=== PATIENT | female | born 1990 | race Caucasian/White ===

== ENCOUNTER 2017-05-21 00:57 | Observation (INO) | payer OTHER ==
[2017-05-21] MEDS ORDERED: VANCOMYCIN IV PER PHARMACY 1 EACH MISC MISCELLANE PRN (01:34)
[2017-05-21] MEDS ORDERED: HYDROcodone/APAP 7.5-325MG 1 EACH TAB PO ONE (01:34)
--- NOTE | 2017-05-21 01:40 | ED ---
Lower Extremity Injury HPI - General Chief Complaint: Extremity Injury, Lower Stated Complaint: foot infection Time Seen by Provider: 05/21/17 01:09 Source: patient Mode of arrival: ambulatory Limitations: no limitations - History of Present Illness Initial Comments: A 26-year-old woman who complains of having left lower extremity pain. The patient states that she has been having approximately 4 months of intermittent left foot pain and infection since having foot surgery about 4 months ago. She states this was performed by Dr. Denney in his clinic. She has taken a number of courses of antibiotics since that time but states that the infection recurs. She experiences redness, swelling, and drainage from the surgical incision which is on the lateral aspect of the dorsum of the left foot. The patient states that she was seen at [facility] yesterday and that they had wanted to admit her for this condition but she states that she left AGAINST MEDICAL ADVICE. She is taking prescription of Bactrim and Cipro which were given yesterday. She states that the symptoms have worsened since then and she is concerned about infection. She has also experienced some hot and cold episodes over the course of today. MD Complaint: foot injury -: days(s) Injury: Foot: Left Type of Injury: other Improves With: nothing Worsens With: weight bearing Context: other (Postsurgical) Associated Symptoms: swelling Treatments Prior to Arrival: other (Antibiotics) - Related Data Allergies Allergy/AdvReac Type Severity Reaction Status Date / Time latex AdvReac Rash/Hives Verified 05/21/17 01:04 Review of Systems ROS Statement: Those systems with pertinent positive or pertinent negative responses have been documented in the HPI. ROS Other: All systems not noted in ROS Statement are negative. Constitutional: Reports: as per HPI, fever, chills Respiratory: Denies: cough, dyspnea Cardiovascular: Denies: chest pain, palpitations, orthopnea, edema, syncope Gastrointestinal: Denies: abdominal pain, vomiting, diarrhea Skin: Reports: as per HPI, change in color Neurological: Denies: weakness, numbness, paresthesias Past Medical History Past Medical History: Diabetes Mellitus, Thyroid Disorder Additional Past Medical History / Comment(s): vertigo, PCOs, hypothyroid History of Any Multi-Drug Resistant Organisms: MRSA Past Surgical History: Tonsillectomy Additional Past Surgical History / Comment(s): ganglion cyst removal each ankle , wisdom teeth removal Past Psychological History: Anxiety, Bipolar, Depression Smoking Status: Never smoker Past Alcohol Use History: None Reported Past Drug Use History: None Reported General Exam Limitations: no limitations General appearance: alert, in no apparent distress, obese Head exam: Present: atraumatic, normocephalic Respiratory exam: Present: normal lung sounds bilaterally. Absent: respiratory distress, wheezes, rales, rhonchi, stridor Cardiovascular Exam: Present: regular rate, normal rhythm, normal heart sounds. Absent: systolic murmur, diastolic murmur, rubs, gallop GI/Abdominal exam: Present: soft. Absent: distended, tenderness, guarding, rebound Extremities exam: Present: tenderness, normal capillary refill, pedal edema, other (The patient does have some soft tissue swelling to the dorsum of the left foot and also to the left pretibial area. There is erythema and warmth. In addition there is serous drainage from the surgical incision, which has had approximately 1/2-1 cm which has opened and is healing by secondary intention.) . Absent: calf tenderness Neurological exam: Present: alert. Absent: motor sensory deficit Skin exam: Present: warm, dry, erythema, other (See extremity exam). Absent: rash, cyanosis, urticaria, vesicles, petechiae, pallor, mottled Course Vital Signs 05/21/17 00:58 Temperature 99.9 F H Pulse Rate 97 Respiratory 18 Rate Blood Pressure 176/79 O2 Sat by Pulse 97 Oximetry Medical Decision Making - Lab Data Result diagrams: 05/21/17 02:10 05/21/17 02:10 Lab Results 05/21/17 05/21/17 05/21/17 Range/Units 02:10 02:10 02:10 WBC 5.8 (3.8-10.6) k/uL RBC 4.45 (3.80-5.40) m/uL Hgb 13.4 (11.4-16.0) gm/dL Hct 40.2 (34.0-46.0) % MCV 90.1 (80.0-100.0) fL MCH 30.0 (25.0-35.0) pg MCHC 33.3 (31.0-37.0) g/dL RDW 15.9 H (11.5-15.5) % Plt Count 211 (150-450) k/uL Neutrophils % 49 % Lymphocytes % 37 % Monocytes % 8 % Eosinophils % 2 % Basophils % 1 % Neutrophils # 2.8 (1.3-7.7) k/uL Lymphocytes # 2.1 (1.0-4.8) k/uL Monocytes # 0.5 (0-1.0) k/uL Eosinophils # 0.1 (0-0.7) k/uL Basophils # 0.0 (0-0.2) k/uL Sodium 140 (137-145) mmol/L Potassium 4.3 (3.5-5.1) mmol/L Chloride 105 (98-107) mmol/L Carbon Dioxide 24 (22-30) mmol/L Anion Gap 11 mmol/L BUN 13 (7-17) mg/dL Creatinine 0.70 (0.52-1.04) mg/dL Est GFR (MDRD) Af Amer >60 (>60 ml/min/1.73 sqM) Est GFR (MDRD) Non-Af >60 (>60 ml/min/1.73 sqM) Glucose 163 H (74-99) mg/dL Plasma Lactic Acid Miguel Angel 1.6 (0.7-2.0) mmol/L Calcium 9.2 (8.4-10.2) mg/dL Disposition Clinical Impression: Foot infection Disposition: ADMITTED IP TO THIS HOSP Condition: Fair Referrals: Karl Dias MD [Primary Care Provider] - 1-2 days
[2017-05-21] MEDS ORDERED: VANCOMYCIN 2,250 MG in SODIUM CHLORIDE 0.9% 500 ML IVPB STA (02:05)
[2017-05-21 02:38] LABS: Basophils % (A) 1 %; Eosinophils # (A) 0.1 k/uL (0-0.7); Eosinophils % (A) 2 %; HCT 40.2 % (34.0-46.0); HGB 13.4 gm/dL (11.4-16.0); Lymphocytes # (A) 2.1 k/uL (1.0-4.8); Lymphocytes % (A) 37 %; MCHC 33.3 g/dL (31.0-37.0); MCV 90.1 fL (80.0-100.0); Mean Platelet Volume 7.7; Monocytes # (A) 0.5 k/uL (0-1.0); Monocytes % (A) 8 %; Neutrophils # (A) 2.8 k/uL (1.3-7.7); Neutrophils % (A) 49 %; Platelet Count 211 k/uL (150-450); RBC 4.45 m/uL (3.80-5.40); RDW 15.9 % (11.5-15.5); WBC 5.8 k/uL (3.8-10.6)
[2017-05-21] MEDS ORDERED: ONDANSETRON 4 MG/2 ML VIAL IVP STA (02:43)
[2017-05-21 02:57] LABS: Anion Gap 11 mmol/L; Blood Urea Nitrogen 13 mg/dL (7-17); Calcium 9.2 mg/dL (8.4-10.2); Carbon Dioxide 24 mmol/L (22-30); Chloride 105 mmol/L (98-107); Glucose 163 mg/dL (74-99); Potassium 4.3 mmol/L (3.5-5.1); Sodium 140 mmol/L (137-145)
[2017-05-21] MEDS ORDERED: ACETAMINOPHEN TAB 325 MG TAB PO PRN (04:18)
[2017-05-21] MEDS ORDERED: ONDANSETRON 4 MG/2 ML VIAL IVP PRN (04:18)
[2017-05-21] MEDS ORDERED: NALOXONE 0.4 MG/ML 1 ML VIAL IV PRN (04:18)
--- NOTE | 2017-05-21 05:14 | XR ---
EXAM: XR Left Foot Complete, 3 or More Views CLINICAL HISTORY: Reason: infection TECHNIQUE: Frontal, lateral and oblique views of the left foot. COMPARISON: No relevant prior studies available. FINDINGS: Bones/joints: No acute or healing fracture or malalignment. Prominent posterior calcaneal enthesophyte. Small plantar calcaneal enthesophyte. Soft tissues: No significant soft tissue gas. No radiopaque foreign body. Other findings: Fullness of the lateral aspect of the forefoot. IMPRESSION: No soft tissue gas foci or collection. No bony erosion or destruction.
[2017-05-21 05:57] LABS: Glucose,Whole Blood 102 mg/dL (75-99)
[2017-05-21] MEDS: HYDROcodone/APAP 5-325MG 1 EACH TAB PO PRN ×2 (09:51→18:51)
[2017-05-21] MEDS: FAMOTIDINE 20 MG TAB PO SCH ×2 (09:52→20:46)
[2017-05-21] MEDS: HEPARIN SODIUM,PORCINE 5,000 UNIT/ML 1 ML VIAL SQ SCH ×3 (09:52→23:14)
[2017-05-21] MEDS: SODIUM CHLORIDE 0.9% 1,000 ML IV SCH ×2 (09:54→18:53)
[2017-05-21] MEDS ORDERED: MECLIZINE 25 MG TAB PO PRN (10:07)
[2017-05-21] MEDS ORDERED: VANCOMYCIN 2,250 MG in SODIUM CHLORIDE 0.9% 500 ML IVPB SCH (12:00)
[2017-05-21] MEDS: LEVOTHYROXINE 75 MCG TAB PO SCH (12:30)
[2017-05-21 12:33] LABS: Glucose,Whole Blood 166 mg/dL (75-99)
[2017-05-21] MEDS: INSULIN LISPRO (humaLOG) 300 UNIT/3 ML VIAL SQ SCH ×3 (12:49→21:19)
--- NOTE | 2017-05-21 16:57 | P.HPIM ---
History of Present Illness H&P Date: 05/21/17 Chief Complaint: Left foot infection Patient is a 26-year-old female with a known history of hypothyroidism, morbid obesity and diet-controlled diabetes mellitus who had left foot ganglion surgery in January 2017 came to the hospital with complaints of worsening left foot infection and swelling and redness and pain. The patient states that she has been having approximately 4 months of intermittent left foot pain and infection since having foot surgery about 4 months ago. She states this was performed by Dr. Denney in his clinic. She has taken a number of courses of antibiotics since that time but states that the infection recurs. She experiences redness, swelling, and drainage from the surgical incision which is on the lateral aspect of the dorsum of the left foot. The patient states that she was seen at [facility] yesterday and that they had wanted to admit her for this condition but she states that she left AGAINST MEDICAL ADVICE. She is taking prescription of Bactrim and Cipro which were given yesterday. She states that the symptoms have worsened since then and she is concerned about infection. She has also experienced some hot and cold episodes over the course of the day. Left foot x-ray showed no soft tissue gas or foci. No bony erosion or destruction. Review of Systems Constitutional: Does have subjective fever and chills. No generalized weakness or weight loss. Abdomen: Patient denied nausea vomiting and diarrhea and abdominal pain. Cardiovascular: Patient denies any chest pain or short of breath no palpitations. Respiratory: patient denied any cough is from production. No shortness of breath Neurologic: Patient denied any numbness or tingling headache. Musculoskeletal: Patient denies any complaints of joint swelling or deformity. Skin: Negative Psychiatric: Negative Endocrine: No heat or cold intolerance. No recent weight gain. Genitourinary: No dysuria or hematuria. All other 14 point ROS negative except the above Past Medical History Past Medical History: Diabetes Mellitus, Thyroid Disorder Additional Past Medical History / Comment(s): vertigo, PCOS, hypothyroid History of Any Multi-Drug Resistant Organisms: MRSA Date of last positivie culture/infection: 2013 MDRO Source:: labia, skin Past Surgical History: Tonsillectomy Additional Past Surgical History / Comment(s): ganglion cyst removal each ankle , wisdom teeth removal; excisions of pre-cancerous moles Past Anesthesia/Blood Transfusion Reactions: Postoperative Nausea & Vomiting ( PONV) Additional Past Anesthesia/Blood Transfusion Reaction / Comment(s): BP dropped when on anesthesia for tonsil sx, states she "blacks out" Past Psychological History: Anxiety, Bipolar, Depression Smoking Status: Never smoker Past Alcohol Use History: None Reported Past Drug Use History: None Reported - Past Family History Mother Additional Family Medical History / Comment(s): Heart problems, brain aneurysm Medications and Allergies Home Medications Medication Instructions Recorded Confirmed Type Levothyroxine Sodium [Synthroid] 75 mcg PO DAILY 05/21/17 05/21/17 History Meclizine [Antivert] 25 mg PO BID PRN 05/21/17 05/21/17 History Allergies Allergy/AdvReac Type Severity Reaction Status Date / Time latex AdvReac Rash/Hives Verified 05/21/17 11:29 Physical Exam Vitals: Vital Signs Temp Pulse Pulse Pulse Resp BP BP 05/21/17 14:22 98.3 F 75 16 122/65 05/21/17 07:00 97.1 F L 69 16 122/64 05/21/17 05:47 97.3 F L 68 22 143/90 05/21/17 04:40 98 F 72 18 133/71 05/21/17 00:58 99.9 F H 97 18 176/79 Pulse Ox 05/21/17 14:22 98 05/21/17 07:00 98 05/21/17 05:47 98 05/21/17 04:40 93 L 05/21/17 00:58 97 Intake and Output 05/20/17 05/21/17 05/21/17 22:59 06:59 14:59 Intake Total 100 Balance 100 Intake: Oral 100 Other: # Voids 1 Weight 171.685 kg PHYSICAL EXAMINATION: Patient is lying in the bed comfortably, no acute distress, awake alert and oriented.. HEENT: Normocephalic. Neck is supple. Pupils reactive. Nostrils clear. Oral cavity is moist. Ears reveal no drainage. Neck reveals no JVD, carotid bruits, or thyromegaly. CHEST EXAMINATION: Trachea is central. Symmetrical expansion. Lung rodriguez clear to auscultation and percussion. CARDIAC: Normal S1, S2 with no gallops. No murmurs ABDOMEN: Soft. Bowel sounds normal. No organomegaly. No abdominal bruits. Extremities: reveal no edema. No clubbing or cyanosis Neurologically awake, alert, oriented x3 with well-coordinated movements. No focal deficits noted Skin: No rash or skin lesions. Left foot lateral side and dorsum is swollen and redness. Surgical site is having serous drainage. Tenderness with palpation. Psychiatric: Cooperative. Nonsuicidal Musculoskeletal: No joint swelling or deformity. Normal range of motion. Results CBC & Chem 7: 05/21/17 02:10 05/21/17 02:10 Labs: Abnormal Lab Results - Last 24 Hours (Table) 05/21/17 05/21/17 05/21/17 Range/Units 02:10 02:10 05:52 RDW 15.9 H (11.5-15.5) % Glucose 163 H (74-99) mg/dL POC Glucose (mg/dL) 102 H (75-99) mg/dL 05/21/17 Range/Units 12:30 RDW (11.5-15.5) % Glucose (74-99) mg/dL POC Glucose (mg/dL) 166 H (75-99) mg/dL Microbiology - Last 24 Hours (Table) 05/21/17 02:10 Wound Culture - Preliminary Foot - Left Thrombosis Risk Factor Assmnt - Choose All That Apply Any of the Below Risk Factors Present?: Yes Each Factor Represents 1 point: Obesity (BMI >25), Swollen legs (current) Thrombosis Risk Factor Assessment Total Risk Factor Score: 2 Thrombosis Risk Factor Assessment Level: Low Risk Assessment and Plan Assessment: #1 left foot wound/surgical site infection with surrounding cellulitis. Failed outpatient therapy #2 history of left foot ganglion surgery in January 2017 #3 diet-controlled diabetes mellitus #4 hypothyroidism #5 mild obesity with BMI 67 Plan: Patient will be continued on antibiotics in the form of vancomycin and follow up wound cultures. ID was consulted for evaluation. We'll continue the insulin sliding scale and thyroid supplements. Wound care. Further conditions based on the clinical course. blood cultures obtained.
[2017-05-21 17:11] LABS: Glucose,Whole Blood 102 mg/dL (75-99)
--- NOTE | 2017-05-21 17:48 | P.CONS ---
History of Present Illness - Reason for Consult Consult date: 05/21/17 - Chief Complaint Pain and swelling to the left leg - History of Present Illness 26-year-old O[place] female presents to the emergency center with increasing pain and swelling to the left pretibial area. Patient relates to an ongoing difficulty to the dorsum of her right foot. She relates in January she underwent a ganglion cyst removal. She was a surgery was somewhat complicated and there was difficulty with the cyst and involvement into underlying muscle and nerve. She's had some nerve pain in the region since the surgery. However since that time she's had an ongoing area of nonhealing to the surgical wound. She's had recurrent areas of erythema and drainage. She relates she's had some cultures performed. Relates that she's been treated with antimicrobial therapy that includes Bactrim, Keflex, Augmentin, clindamycin, and ciprofloxacin. Despite the multiple courses of antibiotic therapy she continues to have ongoing difficulties at the site. It is not healed, there is some drainage. She was seen by her die cast operator and had some debridement done now a few days prior. Within a short period of time she started to develop some increasing pain and discomfort. She then developed area of significant erythema on the dorsum of the distal aspect of the lower leg. She did present to a different emergency center. Requesting evaluation and antibiotic therapy. They thought she just simply wanted pain medications and despite 102.3 fever discharge her from the emergency center. She then came to our emergency center and was admitted with fever and evidence of significant sailers to her foot with an ascending lymphangitis. With at the infectious diseases consultation was requested. This pleasant woman relates that she is in considerable discomfort with the ascending infection. Elevation limb does seem to give it some improvement.. While here pain control is been adequate. And she denies that her fever is showing some improvement. There is also noted some significant discomfort into the left groin area. 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 She does state that she has history of diabetes. Is diet -controlled but has not been doing as well as of late as it had in the past. Review of Systems 26-year-old female has had fever chills without rigors. Sabean pain and discomfort to the left foot and distal leg. HEENT:Denies headache or acute visual change. Denies sinus or mouth discomforts. Denies neck stiffness or pain. Denies significant oral cavity pain. Denies difficulty on swallowing. Lungs: Denies significant shortness of breath, cough, sputum production, or hemoptysis. Cardiovascular: Denies significant shortness of breath, chest pain, chest wall pain, orthopnea, dyspnea on exertion, syncope Gastrointestinal:Denies nausea, vomiting, diarrhea, constipation, hematemesis, melena, hematochezia. No no significant change of bowel habit noticed. Musculoskeletal: denies significant myalgias or arthralgias. No new joint swelling. Denies new back pain. Skin: As per the HPI Neuro: Denies headache or visual change. Denies any new onset weakness or difficulty with ambulation. Denies falls or seizures. Psychiatric:Denies anxiety or depression. Endocrine: Has difficulties with fatigue on a chronic basis. She has superobesity and is looking forward to an evaluation with a bariatric surgeon. Past Medical History Past Medical History: Diabetes Mellitus, Thyroid Disorder Additional Past Medical History / Comment(s): vertigo, PCOS, hypothyroid, superobesity History of Any Multi-Drug Resistant Organisms: MRSA Year Discovered:: 2013 MDRO Source:: labia, skin Past Surgical History: Tonsillectomy Additional Past Surgical History / Comment(s): ganglion cyst removal each ankle , wisdom teeth removal; excisions of pre-cancerous moles Past Anesthesia/Blood Transfusion Reactions: Postoperative Nausea & Vomiting ( PONV) Additional Past Anesthesia/Blood Transfusion Reaction / Comm: BP dropped when on anesthesia for tonsil sx, states she "blacks out" Past Psychological History: Anxiety, Bipolar, Depression Additional Psychological History / Comment(s): Marriedto her over the last 2 years. However also does have a boyfriend that lives in a house with them. After she has severe weight loss plans to have a child or 2. 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 no international travel. Lifelong nonsmoker, no sitting and alcohol use. Denies any use of recreational drugs. No history of injection drug use. No experience. As for dogs and 5 cats that live in the house with the 3 adults. Noted animals are new. There is no change in the home environment. Smoking Status: Never smoker Past Alcohol Use History: None Reported Past Drug Use History: None Reported - Past Family History Mother Additional Family Medical History / Comment(s): Heart problems, brain aneurysm Medications and Allergies Home Medications and Allergies Comment(s): Current Medications Acetaminophen (Tylenol Tab) 650 mg PO Q6HR PRN PRN Reason: Mild Pain or Fever > 100.5 Hydrocodone Bitart/Acetaminophen (Spencer 5-325) 1 each PO Q6HR PRN PRN Reason: Pain Last Admin: 05/21/17 09:51 Dose: 1 each Famotidine (Pepcid) 20 mg PO BID [facility] Last Admin: 05/21/17 09:52 Dose: 20 mg Heparin Sodium (Porcine) (Heparin) 5,000 unit SQ Q8HR [facility] Last Admin: 05/21/17 15:58 Dose: Not Given Sodium Chloride (Saline 0.9%) 1,000 mls @ 100 mls/hr IV .Q10H [facility] Last Admin: 05/21/17 09:54 Dose: 100 mls/hr Ceftaroline Fosamil 600 mg/ (Sodium Chloride) 250 mls @ 250 mls/hr IVPB Q12HR [facility] Insulin Human Lispro (Humalog) 0 unit SQ ACHS [facility] PRN Reason: Protocol Last Admin: 05/21/17 17:09 Dose: Not Given Levothyroxine Sodium (Synthroid) 75 mcg PO DAILY@0630 [facility] Last Admin: 05/21/17 12:30 Dose: 75 mcg Meclizine HCl (Antivert) 25 mg PO BID PRN PRN Reason: Vertigo Multivitamins (Theragran) 1 each PO DAILY@1200 [facility] Naloxone HCl (Narcan) 0.2 mg IV Q2M PRN PRN Reason: Opioid Reversal Ondansetron HCl (Zofran) 4 mg IVP Q8HR PRN PRN Reason: Nausea And Vomiting Home Medications Medication Instructions Recorded Confirmed Type Levothyroxine Sodium [Synthroid] 75 mcg PO DAILY 05/21/17 05/21/17 History Meclizine [Antivert] 25 mg PO BID PRN 05/21/17 05/21/17 History Allergies Allergy/AdvReac Type Severity Reaction Status Date / Time latex AdvReac Rash/Hives Verified 05/21/17 11:29 Physical Exam Vitals: Vital Signs Temp Pulse Pulse Pulse Resp BP BP 05/21/17 14:22 98.3 F 75 16 122/65 05/21/17 07:00 97.1 F L 69 16 122/64 05/21/17 05:47 97.3 F L 68 22 143/90 05/21/17 04:40 98 F 72 18 133/71 05/21/17 00:58 99.9 F H 97 18 176/79 Pulse Ox 05/21/17 14:22 98 05/21/17 07:00 98 05/21/17 05:47 98 05/21/17 04:40 93 L 05/21/17 00:58 97 Intake and Output 05/21/17 05/21/17 05/21/17 06:59 14:59 22:59 Intake Total 100 Balance 100 Intake: Oral 100 Other: # Voids 1 Weight 171.685 kg Pleasant 26-year-old woman who is in no acute distress. HEENT: Anicteric conjunctiva are pink and moist nasal mucosa grossly intact without significant lesions, there is no thrush. Neck: The neck is supple without significant lymphadenopathy or thyromegaly. Lungs: Good bilateral air entry without significant crackles or wheezing. There is no significant bronchial sounds. There is no egophony or dullness. Heart: Regular rate and rhythm with an audible S1-S2, no S3 no S4. There is no significant murmur click or rub, PMI was nondisplaced. Abdomen: Obese, Positive bowel sounds soft and nontender without palpable masses or organomegaly. There was no guarding or rebound. Extremities: The upper extremities have excellent pulses they are symmetric, no significant petechiae or telangiectasia. No splinter hemorrhages were noted. The right lower extremity reveals evidence oflesions. Peripheral pulses are 2+ and symmetric. The left lower extremity reveals evidence of the surgical wound on the dorsum of the foot. At the midpoint there is a small area of opening with some scant drainage. It is serous in nature. It is not grossly purulent. The area around the surgical incision is with some ongoing erythema and distinct tenderness. Then on the left pretibial area is a 6 cm area of dense erythema is also very tender. The tissue has minimal induration. It is not fluctuant. There is no necrosis. There is no other erythema to the left lower extremity. However at the left inguinal area is an enlarged lymph node that is distinctly tender. But no erythema is noted in that region. Neuro: Awake alert oriented to person place and time. There are no acute new gross focal sensory motor deficits. Results CBC & Chem 7: 05/21/17 02:10 05/21/17 02:10 Labs: Abnormal Lab Results - Last 24 Hours (Table) 05/21/17 05/21/17 05/21/17 Range/Units 02:10 02:10 05:52 RDW 15.9 H (11.5-15.5) % Glucose 163 H (74-99) mg/dL POC Glucose (mg/dL) 102 H (75-99) mg/dL 05/21/17 05/21/17 Range/Units 12:30 17:01 RDW (11.5-15.5) % Glucose (74-99) mg/dL POC Glucose (mg/dL) 166 H 102 H (75-99) mg/dL Microbiology - Last 24 Hours (Table) 05/21/17 02:10 Gram Stain - Preliminary Foot - Left Wound Culture - Preliminary Laboratory Results WBC 5.8 k/uL (3.8-10.6) 05/21/17 02:10 RBC 4.45 m/uL (3.80-5.40) 05/21/17 02:10 Hgb 13.4 gm/dL (11.4-16.0) 05/21/17 02:10 Hct 40.2 % (34.0-46.0) 05/21/17 02:10 MCV 90.1 fL (80.0-100.0) 05/21/17 02:10 MCH 30.0 pg (25.0-35.0) 05/21/17 02:10 MCHC 33.3 g/dL (31.0-37.0) 05/21/17 02:10 RDW 15.9 % (11.5-15.5) H 05/21/17 02:10 Plt Count 211 k/uL (150-450) 05/21/17 02:10 Neutrophils % 49 % 05/21/17 02:10 Lymphocytes % 37 % 05/21/17 02:10 Monocytes % 8 % 05/21/17 02:10 Eosinophils % 2 % 05/21/17 02:10 Basophils % 1 % 05/21/17 02:10 Neutrophils # 2.8 k/uL (1.3-7.7) 05/21/17 02:10 Lymphocytes # 2.1 k/uL (1.0-4.8) 05/21/17 02:10 Monocytes # 0.5 k/uL (0-1.0) 05/21/17 02:10 Eosinophils # 0.1 k/uL (0-0.7) 05/21/17 02:10 Basophils # 0.0 k/uL (0-0.2) 05/21/17 02:10 Sodium 140 mmol/L (137-145) 05/21/17 02:10 Potassium 4.3 mmol/L (3.5-5.1) 05/21/17 02:10 Chloride 105 mmol/L (98-107) 05/21/17 02:10 Carbon Dioxide 24 mmol/L (22-30) 05/21/17 02:10 Anion Gap 11 mmol/L 05/21/17 02:10 BUN 13 mg/dL (7-17) 05/21/17 02:10 Creatinine 0.70 mg/dL (0.52-1.04) 05/21/17 02:10 Est GFR (MDRD) Af Amer >60 (>60 ml/min/1.73 sqM) 05/21/17 02:10 Est GFR (MDRD) Non-Af >60 (>60 ml/min/1.73 sqM) 05/21/17 02:10 Glucose 163 mg/dL (74-99) H 05/21/17 02:10 POC Glucose (mg/dL) 102 mg/dL (75-99) H 05/21/17 17:01 POC Glu Complaint Clerk ID Sudha Ferreira 05/21/17 17:01 Plasma Lactic Acid Miguel Angel 1.6 mmol/L (0.7-2.0) 05/21/17 02:10 Calcium 9.2 mg/dL (8.4-10.2) 05/21/17 02:10 Microbiology 05/21/17 02:10 Foot - Left Gram Stain - Preliminary 05/21/17 02:10 Foot - Left Wound Culture - Preliminary Assessment and Plan (1) Acute lymphangitis of left lower extremity Narrative/Plan: Pleasant 26-year-old female presents to Hospital because of increasing pain redness fever and chill associated with the acute process to her left foot. Was seen by podiatry and had some further debridement performed to the chronic wound postsurgical on the dorsum of her left foot. Shortly thereafter she started developed the pain and then the intense onset of erythema and discomfort to the pretibial area. She's now been admitted for the significant ascending lymphangitis as well as cellulitis to the left foot dorsum. Cultures are been obtained. All cultures in process with her history of MRSA infection Ceftaroline 600 mg IV piggyback every 12 hours will be utilized. As a give us coverage for MRSA, as well as regular staph and potential gram-negative such as E. coli that could be problematic in this somewhat chronic infection. She has failed prior therapy with trimethoprim sulfamethoxazole. With the long-term nature of this infection a bone scan has been requested to evaluate the possibility of a deep-seated infection within the foot. Local wound care will be initiated with Silvadene and a wrap the try to help with the significant discomfort at this site. Multivitamin with zinc is added for nutritional supplement Protein levels will be obtained as well as sed rate and CRP. She believes she is up-to-date with her tetanus vaccine. Current Visit: Yes Status: Acute Code(s): L03.126 - ACUTE LYMPHANGITIS OF LEFT LOWER LIMB SNOMED Code(s): 6384167 (2) Fever Current Visit: Yes Status: Acute Code(s): R50.9 - FEVER, UNSPECIFIED SNOMED Code(s): 297560032 (3) Ganglion cyst of left foot Current Visit: Yes Status: Acute Code(s): M67.472 - GANGLION, LEFT ANKLE AND FOOT SNOMED Code(s): 440498001
[2017-05-21] MEDS: CEFTAROLINE FOSAMIL 600 MG in SODIUM CHLORIDE 0.9% 250 ML IVPB SCH (20:45)
[2017-05-21] MEDS: ASPIRIN-ACET-CAFF 250-250-65MG 1 EACH TAB PO PRN (20:46)
[2017-05-21 21:09] LABS: Glucose,Whole Blood 117 mg/dL (75-99)
[2017-05-21 23:51] LABS: Hemoglobin A1C 5.6 % (4.0-6.0)
[2017-05-22] MEDS: SODIUM CHLORIDE 0.9% 1,000 ML IV SCH ×3 (01:40→21:12)
[2017-05-22] MEDS: LEVOTHYROXINE 75 MCG TAB PO SCH (05:56)
[2017-05-22 07:20] LABS: Glucose,Whole Blood 92 mg/dL (75-99)
[2017-05-22] MEDS: INSULIN LISPRO (humaLOG) 300 UNIT/3 ML VIAL SQ SCH ×4 (08:00→21:12)
[2017-05-22] MEDS: FAMOTIDINE 20 MG TAB PO SCH ×2 (08:22→21:12)
[2017-05-22] MEDS: HEPARIN SODIUM,PORCINE 5,000 UNIT/ML 1 ML VIAL SQ SCH ×3 (08:22→23:46)
[2017-05-22] MEDS: CEFTAROLINE FOSAMIL 600 MG in SODIUM CHLORIDE 0.9% 250 ML IVPB SCH ×2 (08:25→21:12)
[2017-05-22] MEDS: HYDROcodone/APAP 5-325MG 1 EACH TAB PO PRN (08:44)
[2017-05-22 11:58] LABS: Glucose,Whole Blood 168 mg/dL (75-99)
[2017-05-22] MEDS: MULTIVITAMINS, THERA 1 EACH TAB PO SCH (12:15)
--- NOTE | 2017-05-22 13:45 | NM ---
EXAMINATION TYPE: NM bone 3 phase DATE OF EXAM: 05/22/2017 COMPARISON: NONE HISTORY: Open wound along the left lateral foot Triple phase bone scintigraphy was performed following the injection of26 mCi Tc 99m MDP. Immediate images and 5 hours post injection images acquired. FINDINGS: There is increased flow to the left leg. Pool imaging demonstrates diffuse increased activity in the soft tissues of the left foot. Static imaging shows increased activity in the tibiotalar joints of edilson th feet. There is mild increased activity in the first MTP joints bilaterally, slightly greater on th e left than the right. There is some increased activity in the calcanea bilaterally but this is symme tric. IMPRESSION: 1. FINDINGS CONSISTENT WITH CELLULITIS. 2. DEGENERATIVE CHANGE. 3. NO CONVINCING EVIDENCE OF OSTEOMYELITIS.
[2017-05-22 16:52] LABS: Glucose,Whole Blood 94 mg/dL (75-99)
[2017-05-22 20:40] LABS: Glucose,Whole Blood 142 mg/dL (75-99)
--- NOTE | 2017-05-22 21:01 | P.PN ---
Subjective Progress Note Date: 05/22/17 Principal diagnosis: Cellulitis 26-year-old [place] female presents to the emergency center with increasing pain and swelling to the left pretibial area. Patient relates to an ongoing difficulty to the dorsum of her right foot. She relates in January she underwent a ganglion cyst removal. She was a surgery was somewhat complicated and there was difficulty with the cyst and involvement into underlying muscle and nerve. She's had some nerve pain in the region since the surgery. However since that time she's had an ongoing area of nonhealing to the surgical wound. She's had recurrent areas of erythema and drainage. She relates she's had some cultures performed. Relates that she's been treated with antimicrobial therapy that includes Bactrim, Keflex, Augmentin, clindamycin, and ciprofloxacin. Despite the multiple courses of antibiotic therapy she continues to have ongoing difficulties at the site. It is not healed, there is some drainage. She was seen by her wood machinist apprentice and had some debridement done now a few days prior. Within a short period of time she started to develop some increasing pain and discomfort. She then developed area of significant erythema on the dorsum of the distal aspect of the lower leg. She did present to a different emergency center. Requesting evaluation and antibiotic therapy. They thought she just simply wanted pain medications and despite 102.3 fever discharge her from the emergency center. She then came to our emergency center and was admitted with fever and evidence of significant sailers to her foot with an ascending lymphangitis. With at the infectious diseases consultation was requested. This pleasant woman relates that she is in considerable discomfort with the ascending infection. Elevation limb does seem to give it some improvement.. While here pain control is been adequate. And she denies that her fever is showing some improvement. There is also noted some significant discomfort into the left groin area. 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 She does state that she has history of diabetes. Is diet -controlled but has not been doing as well as of late as it had in the past. Patient feeling slightly better today. Continues to wonder when she was able to go home. Objective - Vital Signs Vital signs: Vital Signs Temp 97.4 F L 05/22/17 14:36 Pulse 83 05/22/17 14:36 Resp 16 05/22/17 14:36 BP 110/55 05/22/17 14:36 Pulse Ox 94 L 05/22/17 14:36 Intake & Output 05/22/17 05/22/17 05/23/17 06:59 18:59 06:59 Intake Total 450 Balance 450 Weight Intake: Intake, IV Titration 450 Amount Ceftaroline Fosamil 600 250 mg In Sodium Chloride 0.9 % 250 ml @ 250 mls/hr IVPB Q12HR [facility] Rx#: [id number] Sodium Chloride 0.9% 1, 200 000 ml @ 100 mls/hr IV . Q10H [facility] Rx#:[id number] Oral Other: # Voids 1 - Exam Pleasant 26-year-old woman who is in no acute distress. HEENT: Anicteric conjunctiva are pink and moist nasal mucosa grossly intact without significant lesions, there is no thrush. Neck: The neck is supple without significant lymphadenopathy or thyromegaly. Lungs: Good bilateral air entry without significant crackles or wheezing. There is no significant bronchial sounds. There is no egophony or dullness. Heart: Regular rate and rhythm with an audible S1-S2, no S3 no S4. There is no significant murmur click or rub, PMI was nondisplaced. Abdomen: Obese, Positive bowel sounds soft and nontender without palpable masses or organomegaly. There was no guarding or rebound. Extremities: The upper extremities have excellent pulses they are symmetric, no significant petechiae or telangiectasia. No splinter hemorrhages were noted. The right lower extremity reveals evidence oflesions. Peripheral pulses are 2+ and symmetric. The left lower extremity reveals evidence of the surgical wound on the dorsum of the foot. At the midpoint there is a small area of opening with some scant drainage. It is serous in nature. It is not grossly purulent. The area around the surgical incision is with some ongoing erythema and distinct tenderness. Then on the left pretibial area is a 6 cm area of dense erythema is also very tender. The tissue has minimal induration. It is not fluctuant. There is no necrosis. There is no other erythema to the left lower extremity. However at the left inguinal area is an enlarged lymph node that is distinctly tender. But no erythema is noted in that region. Neuro: Awake alert oriented to person place and time. There are no acute new gross focal sensory motor deficits. - Labs CBC & Chem 7: 05/21/17 02:10 05/21/17 02:10 Labs: Abnormal Lab Results - Last 24 Hours (Table) 05/22/17 05/22/17 Range/Units 11:57 20:33 POC Glucose (mg/dL) 168 H 142 H (75-99) mg/dL Microbiology - Last 24 Hours (Table) 05/21/17 02:10 Gram Stain - Preliminary Foot - Left Wound Culture - Preliminary Presumptive Staph aureus Strep agalactiae - (group b) 05/21/17 02:10 Blood Culture - Preliminary Blood No Growth after 24 hours Laboratory Results WBC 5.8 k/uL (3.8-10.6) 05/21/17 02:10 RBC 4.45 m/uL (3.80-5.40) 05/21/17 02:10 Hgb 13.4 gm/dL (11.4-16.0) 05/21/17 02:10 Hct 40.2 % (34.0-46.0) 05/21/17 02:10 MCV 90.1 fL (80.0-100.0) 05/21/17 02:10 MCH 30.0 pg (25.0-35.0) 05/21/17 02:10 MCHC 33.3 g/dL (31.0-37.0) 05/21/17 02:10 RDW 15.9 % (11.5-15.5) H 05/21/17 02:10 Plt Count 211 k/uL (150-450) 05/21/17 02:10 Neutrophils % 49 % 05/21/17 02:10 Lymphocytes % 37 % 05/21/17 02:10 Monocytes % 8 % 05/21/17 02:10 Eosinophils % 2 % 05/21/17 02:10 Basophils % 1 % 05/21/17 02:10 Neutrophils # 2.8 k/uL (1.3-7.7) 05/21/17 02:10 Lymphocytes # 2.1 k/uL (1.0-4.8) 05/21/17 02:10 Monocytes # 0.5 k/uL (0-1.0) 05/21/17 02:10 Eosinophils # 0.1 k/uL (0-0.7) 05/21/17 02:10 Basophils # 0.0 k/uL (0-0.2) 05/21/17 02:10 ESR 30 mm/hr (0-20) H 05/21/17 02:10 Sodium 140 mmol/L (137-145) 05/21/17 02:10 Potassium 4.3 mmol/L (3.5-5.1) 05/21/17 02:10 Chloride 105 mmol/L (98-107) 05/21/17 02:10 Carbon Dioxide 24 mmol/L (22-30) 05/21/17 02:10 Anion Gap 11 mmol/L 05/21/17 02:10 BUN 13 mg/dL (7-17) 05/21/17 02:10 Creatinine 0.70 mg/dL (0.52-1.04) 05/21/17 02:10 Est GFR (MDRD) Af Amer >60 (>60 ml/min/1.73 sqM) 05/21/17 02:10 Est GFR (MDRD) Non-Af >60 (>60 ml/min/1.73 sqM) 05/21/17 02:10 Glucose 163 mg/dL (74-99) H 05/21/17 02:10 POC Glucose (mg/dL) 142 mg/dL (75-99) H 05/22/17 20:33 POC Glu Fisheries Inspector ID Meenu Whittaker 05/22/17 20:33 Plasma Lactic Acid Miguel Angel 1.6 mmol/L (0.7-2.0) 05/21/17 02:10 Calcium 9.2 mg/dL (8.4-10.2) 05/21/17 02:10 C-Reactive Protein 49.2 mg/L (<10.0) H 05/21/17 02:10 Prealbumin 19.0 mg/dL (18.0-42.0) 05/21/17 02:10 Microbiology 05/21/17 02:10 Foot - Left Gram Stain - Preliminary 05/21/17 02:10 Foot - Left Wound Culture - Preliminary Presumptive Staph aureus Strep agalactiae - (group b) 05/21/17 02:10 Blood Blood Culture - Preliminary No Growth after 24 hours Assessment and Plan (1) Acute lymphangitis of left lower extremity Narrative/Plan: Pleasant 26-year-old female presents to Hospital because of increasing pain redness fever and chill associated with the acute process to her left foot. Was seen by podiatry and had some further debridement performed to the chronic wound postsurgical on the dorsum of her left foot. Shortly thereafter she started developed the pain and then the intense onset of erythema and discomfort to the pretibial area. She's now been admitted for the significant ascending lymphangitis as well as cellulitis to the left foot dorsum. Cultures are been obtained. All cultures in process with her history of MRSA infection Ceftaroline 600 mg IV piggyback every 12 hours will be utilized. As a give us coverage for MRSA, as well as regular staph and potential gram-negative such as E. coli that could be problematic in this somewhat chronic infection. She has failed prior therapy with trimethoprim sulfamethoxazole. With the long-term nature of this infection a bone scan has been requested to evaluate the possibility of a deep-seated infection within the foot. Local wound care will be initiated with Silvadene and a wrap the try to help with the significant discomfort at this site. Multivitamin with zinc is added for nutritional supplement Prealbumin level is just adequate. Continue with appropriate protein intake Sed rate and CRP are elevated in response to the infection at this site. Is on a bone scans and process to further evaluate deep-seated infection. Wound culture reveals evidence of staph undetermined type and group B strep. Continue current antibiotics. Await above workup to have the discharge plan which could include outpatient intravenous antibiotic therapy if there is underlying osteomyelitis. She believes she is up-to-date with her tetanus vaccine. Current Visit: Yes Status: Acute Code(s): L03.126 - ACUTE LYMPHANGITIS OF LEFT LOWER LIMB SNOMED Code(s): 4477482 (2) Fever Current Visit: Yes Status: Acute Code(s): R50.9 - FEVER, UNSPECIFIED SNOMED Code(s): 037741657 (3) Ganglion cyst of left foot Current Visit: Yes Status: Acute Code(s): M67.472 - GANGLION, LEFT ANKLE AND FOOT SNOMED Code(s): 216638891
[2017-05-22 23:48] VITALS: TEMP 97.5
--- NOTE | 2017-05-23 00:34 | P.PN ---
Subjective Progress Note Date: 05/22/17 Principal diagnosis: Left foot infection Patient is a 26-year-old female with a known history of hypothyroidism, morbid obesity and diet-controlled diabetes mellitus who had left foot ganglion surgery in January 2017 came to the hospital with complaints of worsening left foot infection and swelling and redness and pain. The patient states that she has been having approximately 4 months of intermittent left foot pain and infection since having foot surgery about 4 months ago. She states this was performed by Dr. Denney in his clinic. She has taken a number of courses of antibiotics since that time but states that the infection recurs. She experiences redness, swelling, and drainage from the surgical incision which is on the lateral aspect of the dorsum of the left foot. The patient states that she was seen at [facility] yesterday and that they had wanted to admit her for this condition but she states that she left AGAINST MEDICAL ADVICE. She is taking prescription of Bactrim and Cipro which were given yesterday. She states that the symptoms have worsened since then and she is concerned about infection. She has also experienced some hot and cold episodes over the course of the day. Left foot x-ray showed no soft tissue gas or foci. No bony erosion or destruction. 05/22/2017 Patient's left foot swelling and redness slightly improved. We'll scan was ordered to rule out any osteoarthritis. Otherwise no fever no chills. No acute overnight issues. Objective - Vital Signs Vital signs: Vital Signs Temp 97.4 F L 05/22/17 14:36 Pulse 83 05/22/17 14:36 Resp 16 05/22/17 14:36 BP 110/55 05/22/17 14:36 Pulse Ox 94 L 05/22/17 14:36 Intake & Output 05/22/17 05/22/17 05/23/17 06:59 18:59 06:59 Intake Total 450 Balance 450 Weight Intake: Intake, IV Titration 450 Amount Ceftaroline Fosamil 600 250 mg In Sodium Chloride 0.9 % 250 ml @ 250 mls/hr IVPB Q12HR [facility] Rx#: [id number] Sodium Chloride 0.9% 1, 200 000 ml @ 100 mls/hr IV . Q10H [facility] Rx#:[id number] Oral Other: # Voids 1 - Exam Patient is lying in the bed comfortably, no acute distress, awake alert and oriented.. HEENT: Normocephalic. Neck is supple. Pupils reactive. Nostrils clear. Oral cavity is moist. Ears reveal no drainage. Neck reveals no JVD, carotid bruits, or thyromegaly. CHEST EXAMINATION: Trachea is central. Symmetrical expansion. Lung rodriguez clear to auscultation and percussion. CARDIAC: Normal S1, S2 with no gallops. No murmurs ABDOMEN: Soft. Bowel sounds normal. No organomegaly. No abdominal bruits. Extremities: reveal no edema. No clubbing or cyanosis Neurologically awake, alert, oriented x3 with well-coordinated movements. No focal deficits noted Skin: No rash or skin lesions. Left foot lateral side and dorsum is swollen and redness. Surgical site is having serous drainage. Tenderness with palpation. Psychiatric: Cooperative. Nonsuicidal Musculoskeletal: No joint swelling or deformity. Normal range of motion. - Labs CBC & Chem 7: 05/21/17 02:10 05/21/17 02:10 Labs: Abnormal Lab Results - Last 24 Hours (Table) 05/22/17 05/22/17 Range/Units 11:57 20:33 POC Glucose (mg/dL) 168 H 142 H (75-99) mg/dL Microbiology - Last 24 Hours (Table) 05/21/17 02:10 Gram Stain - Preliminary Foot - Left Wound Culture - Preliminary Presumptive Staph aureus Strep agalactiae - (group b) 05/21/17 02:10 Blood Culture - Preliminary Blood No Growth after 24 hours Assessment and Plan Assessment: #1 left foot dorsal wound/surgical site infection with surrounding cellulitis. Failed outpatient therapy. We'll rule out partial mellitus #2 history of left foot ganglion surgery in January 2017 #3 diet-controlled diabetes mellitus #4 hypothyroidism #5 mild obesity with BMI 67 Plan: Patient will be continued on antibiotics in the form of ceftarolne and follow up wound cultures. DC'd vancomycin. ID is following. Bone scan was ordered to rule out osteoarthritis. We'll continue the insulin sliding scale and thyroid supplements. Wound care. Further conditions based on the clinical course. blood cultures obtained.
[2017-05-23] MEDS: LEVOTHYROXINE 75 MCG TAB PO SCH (05:49)
[2017-05-23] MEDS: SODIUM CHLORIDE 0.9% 1,000 ML IV SCH (05:49)
[2017-05-23 07:21] LABS: Glucose,Whole Blood 89 mg/dL (75-99)
[2017-05-23 07:31] VITALS: BP 158/93; PULSE 81; RESP 16
[2017-05-23] MEDS: INSULIN LISPRO (humaLOG) 300 UNIT/3 ML VIAL SQ SCH ×2 (08:12→12:11)
[2017-05-23] MEDS: HEPARIN SODIUM,PORCINE 5,000 UNIT/ML 1 ML VIAL SQ SCH (08:17)
[2017-05-23] MEDS: FAMOTIDINE 20 MG TAB PO SCH (08:18)
[2017-05-23] MEDS: CEFTAROLINE FOSAMIL 600 MG in SODIUM CHLORIDE 0.9% 250 ML IVPB SCH (08:18)
[2017-05-23] MEDS: MULTIVITAMINS, THERA 1 EACH TAB PO SCH (11:10)
[2017-05-23 12:04] LABS: Glucose,Whole Blood 112 mg/dL (75-99)
[2017-05-23] MEDS: ASPIRIN-ACET-CAFF 250-250-65MG 1 EACH TAB PO PRN (13:02)
--- NOTE | 2017-05-23 21:15 | P.PN ---
Subjective Progress Note Date: 05/23/17 Principal diagnosis: Cellulitis 26-year-old Finnish female presents to the emergency center with increasing pain and swelling to the left pretibial area. Patient relates to an ongoing difficulty to the dorsum of her right foot. She relates in January she underwent a ganglion cyst removal. She was a surgery was somewhat complicated and there was difficulty with the cyst and involvement into underlying muscle and nerve. She's had some nerve pain in the region since the surgery. However since that time she's had an ongoing area of nonhealing to the surgical wound. She's had recurrent areas of erythema and drainage. She relates she's had some cultures performed. Relates that she's been treated with antimicrobial therapy that includes Bactrim, Keflex, Augmentin, clindamycin, and ciprofloxacin. Despite the multiple courses of antibiotic therapy she continues to have ongoing difficulties at the site. It is not healed, there is some drainage. She was seen by her superintendent renting managing and had some debridement done now a few days prior. Within a short period of time she started to develop some increasing pain and discomfort. She then developed area of significant erythema on the dorsum of the distal aspect of the lower leg. She did present to a different emergency center. Requesting evaluation and antibiotic therapy. They thought she just simply wanted pain medications and despite 102.3 fever discharge her from the emergency center. She then came to our emergency center and was admitted with fever and evidence of significant sailers to her foot with an ascending lymphangitis. With at the infectious diseases consultation was requested. This pleasant woman relates that she is in considerable discomfort with the ascending infection. Elevation limb does seem to give it some improvement.. While here pain control is been adequate. And she denies that her fever is showing some improvement. There is also noted some significant discomfort into the left groin area. 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 She does state that she has history of diabetes. Is diet -controlled but has not been doing as well as of late as it had in the past. Is improved again today. Pain is much improved. Is insistent on going home. Objective - Vital Signs Vital signs: Vital Signs Temp 97.5 F L 05/23/17 07:00 Pulse 81 05/23/17 07:00 Resp 16 05/23/17 07:00 BP 158/93 05/23/17 07:00 Pulse Ox 95 05/23/17 07:00 Intake & Output 05/23/17 05/23/17 05/24/17 06:59 18:59 06:59 Intake Total 1250 Balance 1250 Intake: Intake, IV Titration 1250 Amount Ceftaroline Fosamil 600 250 mg In Sodium Chloride 0.9 % 250 ml @ 250 mls/hr IVPB Q12HR [facility] Rx#: [id number] Sodium Chloride 0.9% 1, 1000 000 ml @ 100 mls/hr IV . Q10H [facility] Rx#:[id number] Other: # Voids 1 2 - Exam Pleasant 26-year-old woman who is in no acute distress. HEENT: Anicteric conjunctiva are pink and moist nasal mucosa grossly intact without significant lesions, there is no thrush. Neck: The neck is supple without significant lymphadenopathy or thyromegaly. Lungs: Good bilateral air entry without significant crackles or wheezing. There is no significant bronchial sounds. There is no egophony or dullness. Heart: Regular rate and rhythm with an audible S1-S2, no S3 no S4. There is no significant murmur click or rub, PMI was nondisplaced. Abdomen: Obese, Positive bowel sounds soft and nontender without palpable masses or organomegaly. There was no guarding or rebound. Extremities: The upper extremities have excellent pulses they are symmetric, no significant petechiae or telangiectasia. No splinter hemorrhages were noted. The right lower extremity reveals evidence oflesions. Peripheral pulses are 2+ and symmetric. The left lower extremity reveals evidence of the surgical wound on the dorsum of the foot. At the midpoint there is a small area of opening with some scant drainage. It is serous in nature. It is not grossly purulent. The area around the surgical incision is with some ongoing erythema and distinct tenderness. The area of erythema on the pretibial areas much improved. Much less tender It is not fluctuant. There is no necrosis. There is no other erythema to the left lower extremity. The lymphadenopathy to the right groin is also improved. Neuro: Awake alert oriented to person place and time. There are no acute new gross focal sensory motor deficits. - Labs CBC & Chem 7: 05/21/17 02:10 05/21/17 02:10 Labs: Abnormal Lab Results - Last 24 Hours (Table) 05/23/17 Range/Units 12:02 POC Glucose (mg/dL) 112 H (75-99) mg/dL Microbiology - Last 24 Hours (Table) 05/21/17 02:10 Gram Stain - Final Foot - Left Wound Culture - Final Staphylococcus aureus Strep agalactiae - (group b) 05/21/17 02:10 Blood Culture - Preliminary Blood No Growth after 48 hours Laboratory Results WBC 5.8 k/uL (3.8-10.6) 05/21/17 02:10 RBC 4.45 m/uL (3.80-5.40) 05/21/17 02:10 Hgb 13.4 gm/dL (11.4-16.0) 05/21/17 02:10 Hct 40.2 % (34.0-46.0) 05/21/17 02:10 MCV 90.1 fL (80.0-100.0) 05/21/17 02:10 MCH 30.0 pg (25.0-35.0) 05/21/17 02:10 MCHC 33.3 g/dL (31.0-37.0) 05/21/17 02:10 RDW 15.9 % (11.5-15.5) H 05/21/17 02:10 Plt Count 211 k/uL (150-450) 05/21/17 02:10 Neutrophils % 49 % 05/21/17 02:10 Lymphocytes % 37 % 05/21/17 02:10 Monocytes % 8 % 05/21/17 02:10 Eosinophils % 2 % 05/21/17 02:10 Basophils % 1 % 05/21/17 02:10 Neutrophils # 2.8 k/uL (1.3-7.7) 05/21/17 02:10 Lymphocytes # 2.1 k/uL (1.0-4.8) 05/21/17 02:10 Monocytes # 0.5 k/uL (0-1.0) 05/21/17 02:10 Eosinophils # 0.1 k/uL (0-0.7) 05/21/17 02:10 Basophils # 0.0 k/uL (0-0.2) 05/21/17 02:10 ESR 30 mm/hr (0-20) H 05/21/17 02:10 Sodium 140 mmol/L (137-145) 05/21/17 02:10 Potassium 4.3 mmol/L (3.5-5.1) 05/21/17 02:10 Chloride 105 mmol/L (98-107) 05/21/17 02:10 Carbon Dioxide 24 mmol/L (22-30) 05/21/17 02:10 Anion Gap 11 mmol/L 05/21/17 02:10 BUN 13 mg/dL (7-17) 05/21/17 02:10 Creatinine 0.70 mg/dL (0.52-1.04) 05/21/17 02:10 Est GFR (MDRD) Af Amer >60 (>60 ml/min/1.73 sqM) 05/21/17 02:10 Est GFR (MDRD) Non-Af >60 (>60 ml/min/1.73 sqM) 05/21/17 02:10 Glucose 163 mg/dL (74-99) H 05/21/17 02:10 POC Glucose (mg/dL) 112 mg/dL (75-99) H 05/23/17 12:02 POC Glu Service Delivery Consultant ID Kristal Chavez 05/23/17 12:[address] Glu mg/dL 114 05/21/17 02:10 Hemoglobin A1c 5.6 % (4.0-6.0) 05/21/17 02:10 Plasma Lactic Acid Miguel Angel 1.6 mmol/L (0.7-2.0) 05/21/17 02:10 Calcium 9.2 mg/dL (8.4-10.2) 05/21/17 02:10 C-Reactive Protein 49.2 mg/L (<10.0) H 05/21/17 02:10 Prealbumin 19.0 mg/dL (18.0-42.0) 05/21/17 02:10 Vancomycin Trough <5.0 ug/mL 05/23/17 10:39 Microbiology 05/21/17 02:10 Foot - Left Gram Stain - Final 05/21/17 02:10 Foot - Left Wound Culture - Final Staphylococcus aureus Strep agalactiae - (group b) 05/21/17 02:10 Blood Blood Culture - Preliminary No Growth after 48 hours Assessment and Plan (1) Acute lymphangitis of left lower extremity Narrative/Plan: Pleasant 26-year-old female presents to Hospital because of increasing pain redness fever and chill associated with the acute process to her left foot. Was seen by podiatry and had some further debridement performed to the chronic wound postsurgical on the dorsum of her left foot. Shortly thereafter she started developed the pain and then the intense onset of erythema and discomfort to the pretibial area. She's now been admitted for the significant ascending lymphangitis as well as cellulitis to the left foot dorsum. Cultures are been obtained. All cultures in process with her history of MRSA infection Ceftaroline 600 mg IV piggyback every 12 hours will be utilized. As a give us coverage for MRSA, as well as regular staph and potential gram-negative such as E. coli that could be problematic in this somewhat chronic infection. She has failed prior therapy with trimethoprim sulfamethoxazole. With the long-term nature of this infection a bone scan has been requested to evaluate the possibility of a deep-seated infection within the foot. Local wound care will be initiated with Silvadene and a wrap the try to help with the significant discomfort at this site. Multivitamin with zinc is added for nutritional supplement Prealbumin level is just adequate. Continue with appropriate protein intake Sed rate and CRP are elevated in response to the infection at this site. \ Bone scan is negative for deep-seated bony infection Wound culture reveals evidence of MSSA and group B strep. Patient desires to go home. We'll utilize oral antimicrobial therapy with cefadroxil 500 mg every 12 hours till she is followed up in the outpatient setting. She can follow-up in the ID office if she has further needs. Status: Acute Code(s): L03.126 - ACUTE LYMPHANGITIS OF LEFT LOWER LIMB SNOMED Code(s): 3885302 (2) Fever Status: Acute Code(s): R50.9 - FEVER, UNSPECIFIED SNOMED Code(s): 294899257 (3) Ganglion cyst of left foot Status: Acute Code(s): M67.472 - GANGLION, LEFT ANKLE AND FOOT SNOMED Code(s ): 796606578
--- NOTE | 2017-05-24 00:25 | P.DS ---
Providers Date of admission: 05/22/17 15:09 Expected date of discharge: 05/23/17 Attending physician: Man Damon Consults: 05/21/17 04:19 Consult Physician Routine Consulting Provider: Saturnino Templeton Reason/Comments: foot infection Do you want consulting provider notified?: Yes [facility] Hospital Course: Discharge diagnosis #1 left foot dorsal wound/surgical site infection with surrounding cellulitis. Failed outpatient therapy. Bone scan showed no evidence of osteomyelitis #2 history of left foot ganglion surgery in January 2017 #3 diet-controlled diabetes mellitus #4 hypothyroidism #5 mild obesity with BMI 67 Hospital course Patient is a 26-year-old female with a known history of hypothyroidism, morbid obesity and diet-controlled diabetes mellitus who had left foot ganglion surgery in January 2017 came to the hospital with complaints of worsening left foot infection and swelling and redness and pain. The patient states that she has been having approximately 4 months of intermittent left foot pain and infection since having foot surgery about 4 months ago. She states this was performed by Dr. Denney in his clinic. She has taken a number of courses of antibiotics since that time but states that the infection recurs. She experiences redness, swelling, and drainage from the surgical incision which is on the lateral aspect of the dorsum of the left foot. The patient states that she was seen at [facility] yesterday and that they had wanted to admit her for this condition but she states that she left AGAINST MEDICAL ADVICE. She is taking prescription of Bactrim and Cipro which were given yesterday. She states that the symptoms have worsened since then and she is concerned about infection. She has also experienced some hot and cold episodes over the course of the day. Left foot x-ray showed no soft tissue gas or foci. No bony erosion or destruction. 05/22/2017 Patient's left foot swelling and redness slightly improved. bone scan was ordered to rule out any OM Otherwise no fever no chills. No acute overnight issues. 05/23/2017 Patient's leg pain much improved. Improved redness. Bone scan showed low does of partial myelitis. Patient will be discharged on oral antibiotics. Patient was continued on antibiotics in the form of ceftarolne and follow up wound cultures. Wound cultures showed MSSA and strep agalactiae. DC'd vancomycin. Bone scan was ordered to rule out osteomyelitis. Negative. ID recommends to continue with oral antibiotics for next 7 days.. continued the insulin sliding scale and thyroid supplements. Wound care. Blood cultures negative Patient is stable to be discharged home Discharge physical examination was done Patient Condition at Discharge: Fair Plan - Discharge Summary New Discharge Prescriptions: New Cefadroxil [Duricef] 500 mg PO Q12HR #42 cap Multivitamins, Thera [Multivitamin (formulary)] 1 each PO DAILY@1200 #30 tab SILVER sulfADIAZINE CREAM [Silvadene Cream] 1 applic TOPICAL BID #1 tube Continue Meclizine [Antivert] 25 mg PO BID PRN PRN Reason: Vertigo Levothyroxine Sodium [Synthroid] 75 mcg PO DAILY Discharge Medication List Levothyroxine Sodium [Synthroid] 75 mcg PO DAILY 05/21/17 [History] Meclizine [Antivert] 25 mg PO BID PRN 05/21/17 [History] Cefadroxil [Duricef] 500 mg PO Q12HR #42 cap 05/23/17 [Rx] Multivitamins, Thera [Multivitamin (formulary)] 1 each PO DAILY@1200 #30 tab 01/01 [Rx] SILVER sulfADIAZINE CREAM [Silvadene Cream] 1 applic TOPICAL BID #1 tube [Rx] Follow up Appointment(s)/Referral(s): Karl Dias MD [Primary Care Provider] - 1-2 days (Office closed for lunch. Patient will need to make self appt. ) Patient Instructions/Handouts: Type 2 Diabetes in Adults (DC) Discharge Disposition: HOME SELF-CARE
== END 2017-05-23 13:52 | disposition home or self-care (01) ==
LOC: EC 00:57 → 4MS4W 04:19 → INTOOBSV 05-22 15:09 → OBSVTOIN 05-22 15:09 → 4MS4W 05-23 08:21
PROVIDERS: ADMIT Hospitalist; ATTEND Hospitalist
DX: T81.4XXA Infection following a procedure, initial encounter (principal); L03.116 Cellulitis of left lower limb; E11.9 Type 2 diabetes mellitus without complications; B95.61 Methicillin susceptible Staphylococcus aureus infection as the cause of diseases classified elsewhere; B95.1 Streptococcus, group B, as the cause of diseases classified elsewhere; E66.01 Morbid (severe) obesity due to excess calories; Z68.44 Body mass index [BMI] 60.0-69.9, adult; E03.9 Hypothyroidism, unspecified; E28.2 Polycystic ovarian syndrome; Z86.14 Personal history of Methicillin resistant Staphylococcus aureus infection; Z79.899 Other long term (current) drug therapy; Z91.040 Latex allergy status; Y83.8 Other surgical procedures as the cause of abnormal reaction of the patient, or of later complication, without mention of misadventure at the time of the procedure
CPT/HCPCS: 96365 ×2; 96366 ×6; 96375 ×3; 99284 ×2; 96376 ×3; 96361 ×2; 96367; 36415; 84134; 80048; 85652; 83605; 85025; 80202; 86140; 87040; 87070; 87205; 87077; 87186; 83036; 73630; 78315; G0378 ×3; A9503; J3370; J1644 ×3; J2405; J0712 ×3